=== PATIENT | female | born 1950 | race Caucasian/White ===

== ENCOUNTER 2017-05-21 12:52 | Outpatient (CLI) | payer MEDICARE ==
--- NOTE | 2017-05-26 15:05 | MMO ---
BILATERAL DIGITAL SCREENING MAMMOGRAMS: Date: 05/21/17 HISTORY: 67-year-old female presents for digital screening mammogram. COMPARISON: 04/09/16, 05/10/14, and 05/16/13. FINDINGS: This patient's mammogram was interpreted with the assistance of computer-aided detection. Scattered fibroglandular density are noted bilaterally. Stable post biopsy clip in the left breast. T here are a few typically benign calcifications. Stable bilateral parenchymal density asymmetries. IMPRESSION: BIRADS 2: Benign Finding(s) Continue routine screening. POS: [facility]
== END 2017-05-21 12:53 | disposition home or self-care (01) ==
LOC: SCSMAMMO 12:52
PROVIDERS: ATTEND Surgery
DX: Z12.31 Encounter for screening mammogram for malignant neoplasm of breast (principal)
CPT/HCPCS: 77067

== ENCOUNTER 2017-11-25 08:44 | Outpatient (CLI) | payer MEDICARE ==
[2017-11-25] MEDS ORDERED: Gadobenate Dimeglumine 529 MG/1 ML (20ML VIAL) ONE (09:00)
[2017-11-25 09:35] LABS: ALT (SGPT) 12 U/L (8-55); AST (SGOT) 16 U/L (5-34); Albumin 4.1 g/dL (3.4-4.8); Alkaline Phosphatase 82 U/L (40-150); Anion Gap 13 mmol/L (10-20); BUN (Urea Nitrogen) 8 mg/dL (9.8-20.1); Bilirubin, Total 0.2 mg/dL (0.2-1.2); Calc. Creatinine Clearance 0 mL/min (70-130); Calcium 9.2 mg/dL (7.8-10.44); Carbon Dioxide 28 mmol/L (23-31); Cardiac Risk 3.9 (Less than 4.5); Chloride 102 mmol/L (98-107); Cholesterol 332 mg/dl (< 200 Desired); Estimated GFR-MDRD 60; Glucose 84 mg/dL (80-115); HDL Cholesterol 86 mg/dL (>60 Neg Risk); LDL Cholesterol, Calculated 206 mg/dL; Potassium 4.2 mmol/L (3.5-5.1); Protein, Total 7.1 g/dL (6.0-8.3); Sodium 139 mmol/L (136-145); Triglycerides 200 mg/dL (Less than 150)
[2017-11-25 11:05] LABS: #Basophils 0.1 thou/uL (0.0-0.2); #Eosinphils 0.2 thou/uL (0.0-0.7); #Lymphocytes 2.6 thou/uL (1.20-3.40); #Monocytes 0.4 thou/uL (0.11-0.59); #Neutrophils 2.9 thou/uL (1.40-6.50); %Basophils 1.6 % (0.0-1.0); %Eosinophils 3.5 % (0.0-10.0); %Lymphocytes 41.5 % (21.0-51.0); %Neutrophils 46.4 % (42.0-75.0); Hemoglobin 11.2 g/dL (12.0-16.0); MDiff Complete? YES; Mean Corpuscular Hemoglobin 26.3 pg (27.0-31.0); Mean Corpuscular Volume 87.6 fL (78.0-98.0); Mean Platelet Volume 7.7 fL (7.4-10.4); PLT Morphology Comment Appears Adequate; Platelet Count 244 thou/uL (130-400); RBC Distribution Width 14.6 % (11.5-14.5); Red Blood Cell (RBC) Count 4.27 mill/uL (4.20-5.40); Stomatocytes MODERATE= 6-15 cells (100X) (0-1/hpf); White Blood Cell (WBC) Count 6.2 thou/uL (4.8-10.8)
--- NOTE | 2017-11-25 11:32 | MRI ---
BRAIN MRI WITH AND WITHOUT CONTRAST: Indication: Persistent headache. FINDINGS: There is no evidence of ventriculomegaly, mass effect, midline shift, or acute territorial infarction . No hemorrhagic susceptibility is seen within the brain parenchyma. No pathologic intra or extraaxia l enhancement. IMPRESSION: No acute intracranial abnormality. POS: [facility]
== END 2017-11-25 08:45 | disposition home or self-care (01) ==
LOC: SCSMRI 08:44
PROVIDERS: ATTEND Internal Medicine
DX: I10 Essential (primary) hypertension (principal); E78.01 Familial hypercholesterolemia; R51 Headache; Z79.899 Other long term (current) drug therapy
CPT/HCPCS: 70553; 80053; 80061; 85025; A9579

== ENCOUNTER 2018-10-23 21:03 | Emergency (ER) | payer MEDICARE ==
[2018-10-23] MEDS ORDERED: Meclizine HCl 25 MG TAB ONE (21:33)
--- NOTE | 2018-10-23 21:52 | CT ---
CT Brain WO Con HISTORY: Syncope. COMPARISON: None. FINDINGS: Ventricular and cisternal system shows fairly age-appropriate change. There are no signs of intracerebral hemorrhage or extra-axial fluid collections. The mastoid air cells and visualized sinuses are clear. IMPRESSION: No acute intracranial abnormalities.
[2018-10-23] MEDS ORDERED: Prochlorperazine 10 MG/2 ML VIAL ONE (22:31)
[2018-10-23] MEDS ORDERED: Ketorolac Tromethamine 30 MG/ML VIAL ONE (22:31)
[2018-10-23] MEDS ORDERED: diphenhydrAMINE 50 MG/ML VIAL ONE (22:31)
== END 2018-10-23 23:22 | disposition home or self-care (01) ==
LOC: SCSER 21:03
DX: G43.909 Migraine, unspecified, not intractable, without status migrainosus (principal); E78.5 Hyperlipidemia, unspecified; J45.909 Unspecified asthma, uncomplicated; R51 Headache; F41.9 Anxiety disorder, unspecified
CPT/HCPCS: 70450; 96365; 96375; J0780; J1200; J1885; J8597

== ENCOUNTER 2018-11-26 07:32 | Outpatient (CLI) | payer MEDICARE ==
--- NOTE | 2018-11-26 08:12 | CT ---
CT ABDOMEN AND PELVIS WITHOUT CONTRAST: DATE: 11/26/2018. PROVIDED CLINICAL HISTORY: Microscopic hematuria. FINDINGS: Comparison is made with the examination performed 11/10/2012. There is a small hiatal hernia, similar to the prior examination. The visualized lung bases are free of significant opacity. Hepatic hypodensities are again noted, stable as compared to prior and compatible with cysts. The so lid abdominal organs are suboptimally evaluated in the absence of IV contrast material but demonstrat e an otherwise unremarkable unenhanced CT appearance. There is no evidence for urinary tract calculi or hydronephrosis. Changes of prior cholecystectomy are seen. No bowel dilatation, inflammatory fat stranding, free flu id, or lymph node enlargement apparent. The uterus is not visualized and presumed surgically absent. Occasional vascular calcifications are seen. The osseous structures demonstrate no concerning lytic or blastic lesions. Lower lumbar spine degene rative changes are seen. IMPRESSION: No evidence for urinary tract calculi or hydronephrosis. POS: [facility]
== END 2018-11-26 07:33 | disposition home or self-care (01) ==
LOC: SCSCT 07:32
PROVIDERS: ATTEND Internal Medicine
DX: N20.0 Calculus of kidney (principal)
CPT/HCPCS: 74176

== ENCOUNTER 2018-12-10 08:34 | Outpatient (CLI) | payer MEDICARE ==
--- NOTE | 2018-12-10 12:01 | RAD ---
IVP HISTORY: Hematuria. FINDINGS: Adjunct Physics Instructor KUB shows large amount of gas throughout the colon. Metallic clips over the gallbladd er fossa. Bilateral and symmetric nephrograms on the early images. Renal outlines are unremarkable. Each renal collecting system, ureter, and the contrast-filled urinary bladder are unremarkable. No filling defects apparent. Post void residual is minimal. IMPRESSION: Normal exam.
== END 2018-12-10 08:35 | disposition home or self-care (01) ==
LOC: RAD 08:34
PROVIDERS: ATTEND Urology
DX: R31.29 Other microscopic hematuria (principal)
CPT/HCPCS: 74410

== ENCOUNTER 2021-10-17 15:33 | Outpatient (CLI) | payer MEDICARE ==
[2021-10-17 16:46] LABS: Hemoglobin 11.1 g/dL (12.0-15.5); Mean Corpuscular HGB CONC 32.6 g/dL (32.0-36.0); Mean Corpuscular Hemoglobin 30.4 pg (27.0-33.0); Mean Corpuscular Volume 93.4 fl (81.6-98.3); Platelet Count 245 10x3/uL (150-450); Red Blood Cell (RBC) Count 3.65 10x6/uL (3.90-5.03); White Blood Cell (WBC) Count 5.7 10x3/uL (3.5-10.5)
[2021-10-17 17:02] LABS: Anion Gap 11 mmol/L (10-20); BUN (Urea Nitrogen) 11 mg/dL (9.8-20.1); Calc. Creatinine Clearance 0 mL/min (70-130); Calcium 9.1 mg/dL (7.8-10.44); Carbon Dioxide 28 mmol/L (23-31); Chloride 104 mmol/L (98-107); Estimated GFR 61; Glucose 105 mg/dL (83-110); Potassium 4.2 mmol/L (3.5-5.1); Sodium 139 mmol/L (136-145)
[2021-10-17 17:03] LABS: INR-International Normal Ratio 0.9; Prothrombin Time 9.9 sec (9.5-12.1)
== END 2021-10-17 15:34 | disposition home or self-care (01) ==
LOC: LABBT 15:33
PROVIDERS: ATTEND Orthopaedic Surgery
DX: Z01.818 Encounter for other preprocedural examination (principal); M16.11 Unilateral primary osteoarthritis, right hip; Z20.822 Contact with and (suspected) exposure to COVID-19
CPT/HCPCS: 80048; 85027; 85610; 87081; 87811; 93005; 93010

== ENCOUNTER 2021-10-22 05:33 | Observation (INO) | payer MEDICARE ==
[2021-10-18 13:42] VITALS: BMI 29.6
[2021-10-22] MEDS ORDERED: Sodium Chloride 0.9% 100 ML ONE ×2 (06:09→06:58)
[2021-10-22] MEDS ORDERED: Tranexamic Acid 1,000 MG/10 ML VIAL ONE (06:09)
[2021-10-22] MEDS ORDERED: Vancomycin (BATCH) 1.5 GRAM/300 ML BAG ONE (06:10)
[2021-10-22] MEDS ORDERED: fentaNYL Citrate/PF 100 MCG/2 ML SYRINGE ONE (06:18)
[2021-10-22] MEDS ORDERED: Propofol 1,000 MG/100 ML VIAL IV ONE (06:18)
[2021-10-22] MEDS ORDERED: Lidocaine 2% Jelly 5 ML TUBE ONE (06:18)
[2021-10-22] MEDS ORDERED: Bupivacaine PF 0.5% 30 ML VIAL ONE (06:22)
[2021-10-22] MEDS ORDERED: Midazolam HCl 2 mg/2 ml Vial ONE (06:39)
[2021-10-22] MEDS ORDERED: Fentanyl 100 MCG/2 ML VIAL ONE ×2 (06:39→09:22)
[2021-10-22] MEDS ORDERED: Acetaminophen 325 MG TAB PO PRN (06:56)
[2021-10-22] MEDS ORDERED: diphenhydrAMINE 25 MG CAP PO PRN (06:56)
[2021-10-22] MEDS ORDERED: HYDROcodone/Acetaminophen 10/325 mg Tablet PO PRN (06:56)
[2021-10-22] MEDS ORDERED: Promethazine HCl 25 MG/ML VIAL IM PRN (06:56)
[2021-10-22] MEDS ORDERED: Fentanyl 100 MCG/2 ML VIAL SLOW IVP PRN ×2 (06:56)
[2021-10-22] MEDS ORDERED: Zolpidem Tartrate 5 MG TAB PO PRN (06:56)
[2021-10-22] MEDS ORDERED: Ondansetron PF 4 MG/2 ML Vial IVP PRN (06:56)
[2021-10-22] MEDS ORDERED: KETOROLAC TROMETHAMINE IM PRN (06:57)
[2021-10-22] MEDS ORDERED: ALPRAZolam 0.25 MG TAB PO PRN (06:57)
[2021-10-22] MEDS ORDERED: Simethicone Chewable 80 MG TAB PO PRN (06:57)
[2021-10-22] MEDS ORDERED: CEFAZOLIN 2 GM VIAL ONE (06:58)
[2021-10-22] MEDS ORDERED: VITAMIN B12 IM SCH (07:00)
[2021-10-22] MEDS ORDERED: Ondansetron PF 4 MG/2 ML Vial ONE (07:25)
[2021-10-22] MEDS ORDERED: ePHEDrine 50 MG/ML VIAL ONE (07:25)
[2021-10-22] MEDS ORDERED: Dexamethasone 20 MG/5 ML VIAL ONE (07:25)
[2021-10-22] MEDS ORDERED: PROPOFOL 200 MG/20 ML VIAL ONE (07:25)
[2021-10-22] MEDS ORDERED: Bupivacaine HCl 0.5%/Epinephrine 1:200,000/PF 30 ml Vial ONE (07:25)
[2021-10-22] MEDS: Aspirin 81 mg Enteric Coated Tablet PO SCH ×2 (11:13→20:01)
[2021-10-22] MEDS: Loratadine 10 MG TAB PO SCH (11:17)
[2021-10-22] MEDS: HYDROcodone/Acetaminophen 10/325 mg Tablet PO PRN (11:17)
[2021-10-22] MEDS: Cholecalciferol 1,000 UNITS (25 MCG) TAB PO SCH (11:18)
[2021-10-22] MEDS: Sodium Chloride 0.9% 1,000 ML IV SCH ×3 (11:18→21:50)
[2021-10-22] MEDS: Ketorolac Tromethamine 30 MG/ML VIAL IVP SCH ×2 (14:54→21:50)
[2021-10-22] MEDS: CEFAZOLIN 2 GM in Sodium Chloride 0.9% 100 ML IVPB SCH ×2 (14:55→23:12)
[2021-10-22] MEDS ORDERED: Estrogens, Conjugated 0.3 MG TAB PO SCH (21:00)
[2021-10-22] MEDS ORDERED: Citalopram 20 MG TAB PO SCH (21:00)
[2021-10-22] MEDS ORDERED: Montelukast Sodium 10 mg Tablet PO SCH (21:00)
[2021-10-22] MEDS ORDERED: Non-Formulary Item 1 EACH (Zolpidem Tartrate [Ambien Cr] 12.5 MG Tab.Mphase) PO SCH (21:00)
[2021-10-23] MEDS: Ketorolac Tromethamine 30 MG/ML VIAL IVP SCH (05:39)
[2021-10-23 06:09] LABS: Hemoglobin 10.1 g/dL (12.0-16.0); Mean Corpuscular Hemoglobin 31.3 pg (27.0-31.0); Mean Corpuscular Volume 94.7 fL (78.0-98.0); Mean Platelet Volume 7.8 fL (7.4-10.4); Platelet Count 199 thou/uL (130-400); RBC Distribution Width 13.4 % (11.5-14.5); Red Blood Cell (RBC) Count 3.21 mill/uL (4.20-5.40); White Blood Cell (WBC) Count 7.4 thou/uL (4.8-10.8)
[2021-10-23] MEDS ORDERED: Ferrous Gluconate 324 MG TAB PO SCH (08:00)
[2021-10-23] MEDS ORDERED: Multivitamin W/ Minerals 1 TAB PO SCH (09:00)
[2021-10-23] MEDS ORDERED: Senokot S 8.6-50 MG TAB PO SCH (09:00)
[2021-10-23] MEDS: Loratadine 10 MG TAB PO SCH (09:08)
[2021-10-23] MEDS: Cholecalciferol 1,000 UNITS (25 MCG) TAB PO SCH (09:08)
[2021-10-23] MEDS: Aspirin 81 mg Enteric Coated Tablet PO SCH (09:08)
[2021-10-23] MEDS: HYDROcodone/Acetaminophen 10/325 mg Tablet PO PRN (11:14)
[2021-10-23 12:03] VITALS: BP 143/82; TEMP 98.9
== END 2021-10-23 12:28 | disposition home or self-care (01) ==
LOC: SDC 05:33 → SURG B 10:16
PROVIDERS: ADMIT Orthopaedic Surgery; ATTEND Orthopaedic Surgery
PROC: 0SR902A Replacement of Right Hip Joint with Metal on Polyethylene Synthetic Substitute, Uncemented, Open Approach (ICD-10-PCS; principal; 2021-10-22)
PROC: 3E0T3BZ Introduction of Anesthetic Agent into Peripheral Nerves and Plexi, Percutaneous Approach (ICD-10-PCS; 2021-10-22)
DX: M16.11 Unilateral primary osteoarthritis, right hip (principal); E78.00 Pure hypercholesterolemia, unspecified; Z79.890 Hormone replacement therapy; Z79.899 Other long term (current) drug therapy; Z88.5 Allergy status to narcotic agent; Z88.8 Allergy status to other drugs, medicaments and biological substances
CPT/HCPCS: 27130; 64999; 73502; 85027; 97110; 97116 ×2; 97530; 97535; C1776; G0378; J3370; 36415; J0690; J1100; J1885; J2250; J2405; J2704; J3010; J3490; J7050; S0020